=== PATIENT | female | born 1950 | race Caucasian/White ===

== ENCOUNTER 2016-12-04 12:10 | Emergency (ER) | payer OTHER ==
[~2016-12-04 12:10] MED LIST: ASPIRIN EC81 MG PO
[2016-12-04 13:41] LABS: HEMOGLOBIN 12.1 gm/dl (12.3-15.3); RED BLOOD COUNT 4.06 M/UL (4.00-5.10); WHITE BLOOD COUNT 8.3 K/UL (4.5-11.0)
[2016-12-04 13:54] LABS: BUN/CREATININE RATIO 9 (0-10)
== END 2016-12-04 18:36 | disposition home or self-care (01) ==
LOC: ER1 12:10
PROVIDERS: Emergency Medicine
DX: J18.9 Pneumonia, unspecified organism (principal); R09.1 Pleurisy; J44.9 Chronic obstructive pulmonary disease, unspecified; K21.9 Gastro-esophageal reflux disease without esophagitis; F17.200 Nicotine dependence, unspecified, uncomplicated; Z88.6 Allergy status to analgesic agent; Z79.899 Other long term (current) drug therapy
CPT/HCPCS: 36415; 71020; 80053; 83690; 84484; 85025; 85379; 93005; 94640; 94664; 96361; 96365; 99284; J1956; J7050; Q9963

== ENCOUNTER 2016-12-11 14:18 | Emergency (ER) | payer OTHER ==
[2016-12-11 15:33] LABS: HEMOGLOBIN 11.6 gm/dl (12.3-15.3); RED BLOOD COUNT 3.85 M/UL (4.00-5.10); WHITE BLOOD COUNT 9.2 K/UL (4.5-11.0)
[2016-12-11 15:44] LABS: BUN/CREATININE RATIO 13 (0-10)
== END 2016-12-11 23:20 | disposition home or self-care (01) ==
LOC: ER1 14:18
PROVIDERS: Emergency Medicine
DX: J44.1 Chronic obstructive pulmonary disease with (acute) exacerbation (principal); J90 Pleural effusion, not elsewhere classified; D64.9 Anemia, unspecified; F17.200 Nicotine dependence, unspecified, uncomplicated; Z88.6 Allergy status to analgesic agent; Z79.899 Other long term (current) drug therapy
CPT/HCPCS: 36415; 71010; 80053; 82550; 82553; 83874; 83880; 84484; 85025; 85379; 93005; 94640; 94664; 96361; 96374; 99283; J2930; J7050; Q9963

== ENCOUNTER 2016-12-26 15:55 | Emergency (ER) | payer OTHER ==
[2016-12-26 18:45] LABS: HEMOGLOBIN 11.4 gm/dl (12.3-15.3); RED BLOOD COUNT 3.8 M/UL (4.00-5.10); WHITE BLOOD COUNT 9.7 K/UL (4.5-11.0)
[2016-12-26 19:07] LABS: BUN/CREATININE RATIO 9 (0-10)
== END 2016-12-26 19:51 | disposition home or self-care (01) ==
LOC: ER1 15:55
PROVIDERS: Physician Assistant Medical
DX: J18.9 Pneumonia, unspecified organism (principal); I25.10 Atherosclerotic heart disease of native coronary artery without angina pectoris; J44.9 Chronic obstructive pulmonary disease, unspecified; F17.200 Nicotine dependence, unspecified, uncomplicated
CPT/HCPCS: 36415; 71101; 80053; 81001; 83880; 84484; 85025; 93005; 99284

== ENCOUNTER 2016-12-31 13:33 | Inpatient (IN) | payer OTHER ==
[~2016-12-31] VITALS: Ht 162.6 cm; Wt 66.4 kg
[2016-12-31 15:00] LABS: HEMOGLOBIN 12.9 gm/dl (12.3-15.3); RED BLOOD COUNT 4.3 M/UL (4.00-5.10); WHITE BLOOD COUNT 10.7 K/UL (4.5-11.0)
[2016-12-31 15:24] LABS: BUN/CREATININE RATIO 10 (0-10)
[2016-12-31] MEDS ORDERED: TESSALON PERLE100 MG PO (20:29)
[2016-12-31] MEDS ORDERED: LEVOFLOXACIN750 MG PO (20:30)
[2016-12-31] MEDS ORDERED: VENTOLIN/PROVE0.5 ML NEB (20:31)
[2016-12-31] MEDS ORDERED: ZYRTEC10 M3 PO (20:32)
[2016-12-31] MEDS ORDERED: CITALOPRAM HBR40 MG PO (20:32)
[2016-12-31] MEDS ORDERED: ZANAFLEX 4 MG TA4 MG PO (20:33)
[2016-12-31] MEDS ORDERED: PANTOPRAZOLE SO40 MG PO (20:33)
[2016-12-31] MEDS ORDERED: TRAMADOL HCL50 MG PO (20:34)
[2016-12-31] MEDS ORDERED: VENTOLIN/PROVE0.5 ML INH (20:35)
[2017-01-01 05:21] LABS: HEMOGLOBIN 11.8 gm/dl (12.3-15.3); WHITE BLOOD COUNT 11.1 K/UL (4.5-11.0)
[2017-01-01 05:35] LABS: BUN/CREATININE RATIO 12 (0-10)
[2017-01-02 12:17] LABS: BUN/CREATININE RATIO 16 (0-10)
[2017-01-02] MEDS ORDERED: ASPIR 8181 MG PO (19:47)
[2017-01-02] MEDS ORDERED: CITALOPRAM HBR40 MG PO (19:48)
== END 2017-01-02 20:25 | disposition home or self-care (01) | DRG 191 ==
LOC: ER1 13:33 → ZEROF 15:31 → PROG CARE 15:31
PROVIDERS: Internal Medicine; Physician Assistant; ADMIT Internal Medicine
DX: J44.1 Chronic obstructive pulmonary disease with (acute) exacerbation (principal); J90 Pleural effusion, not elsewhere classified; I25.10 Atherosclerotic heart disease of native coronary artery without angina pectoris; I10 Essential (primary) hypertension; E78.5 Hyperlipidemia, unspecified; R07.89 Other chest pain; R74.8 Abnormal levels of other serum enzymes; I87.2 Venous insufficiency (chronic) (peripheral); K21.9 Gastro-esophageal reflux disease without esophagitis; F17.210 Nicotine dependence, cigarettes, uncomplicated; F32.9 Major depressive disorder, single episode, unspecified; Z86.010 Personal history of colon polyps; Z79.899 Other long term (current) drug therapy; Z88.6 Allergy status to analgesic agent; Z88.8 Allergy status to other drugs, medicaments and biological substances; Z90.49 Acquired absence of other specified parts of digestive tract; Z98.890 Other specified postprocedural states; Z80.0 Family history of malignant neoplasm of digestive organs
CPT/HCPCS: ECHO; 36415; 71010; 78452; 80048; 80053; 80061; 81001; 82150; 82550; 82553; 83605; 83690; 83735; 83874; 84484; 85025; 85730; 93005; 93017; 93306; 94640; 94664; 99285; A9502; J0280; J1644; J2785; J7030; J7050; Q9963

== ENCOUNTER → 2020-09-30 | Outpatient (CLI) | payer OTHER ==
[~2020-09-30] MED LIST changes: +AEROCHAMBER1 EA XX; +ASPIR 8181 MG PO; +BENTYL 20MG TAB20 MG PO; +CALCIUM GLUCON500 MG PO; +CEFUROXIME500 MG PO; +CITALOPRAM HBR40 MG PO; +CLARITIN10 MG PO; +COLACE 100MG C100 MG PO; +COUMADIN 1MG TAB1 MG PO; +DESYREL 50 MG T50 MG PO; +ELIQUIS 5 MG TAB5 MG PO; +ELIQUIS2.5 MG PO; +FIBER-LAX625 MG PO; +FLONASE 0.05% N16 GM; +GAS-X125 M1 PO; +GLUCOSAMINE &1 EAC1 PO; +KEFLEX CAP 500500 MG PO; +LEVOFLOXACIN750 MG PO; +MEDROL DOSEPAK 24 MG PO; +MEDROL4 MG PO; +MELATONIN10 M2 PO; +MIRALAX17 GM PO; +ONDANSETRON ODT4 MG PO; +OSTEO BI-FLEX1 EAC1 PO; +PANTOPRAZOLE SO40 MG PO; +PREDNISONE 50 M50 MG PO; +PREDNISONE20 MG PO; +PROAIR DIGIHAL90 MCG INH; +SYMBICORT 16010.2 GM INH; +TESSALON PERLE100 MG PO; +TRAMADOL HCL50 MG PO; +VENTOLIN HFA 66.7 GM INH; +VENTOLIN/PROVE0.5 ML INH; +VENTOLIN/PROVE0.5 ML NEB; +VIBRAMYCIN100 MG PO; +ZANAFLEX 4 MG TA4 MG PO; +ZANTAC150 MG PO; +ZITHROMAX250 MG PO; +ZOFRAN ODT 4 MG4 MG PO; +ZYRTEC10 M3 PO
[2020-09-30 14:48] LABS: RED BLOOD COUNT 4.19 M/UL (4.00-5.10); WHITE BLOOD COUNT 5.8 K/UL (4.5-11.0)
[2020-09-30 15:17] LABS: BUN/CREATININE RATIO 9 (0-10)
[2020-10-02 13:09] LABS: CHOLESTEROL, TOTAL 239 mg/dL (100-199); HDL SIZE 9.3 nm (>=9.2); HDL-C 49 mg/dL (>39); HDL-P (TOTAL) 30.3 umol/L (>=30.5); LARGE HDL-P 5.1 umol/L (>=4.8); LARGE VLDL-P 3.1 nmol/L (<=2.7); LDL SIZE 21.8 nm (>20.5); LDL SIZE 21.8 nm (>=20.8); LDL-C 172 mg/dL (0-99); LDL-P 1963 nmol/L (<1000); LP-IR SCORE 54 (<=45); SMALL LDL-P 529 nmol/L (<=527); TRIGLYCERIDES 100 mg/dL (0-149); VLDL SIZE 57.8 nm (<=46.6)
== END ==
LOC: LAB 13:44
PROVIDERS: Emergency Medicine
DX: E55.9 Vitamin D deficiency, unspecified (principal); F33.0 Major depressive disorder, recurrent, mild; F41.1 Generalized anxiety disorder; G47.09 Other insomnia; I48.11 Longstanding persistent atrial fibrillation; I48.20 Chronic atrial fibrillation, unspecified; E78.6 Lipoprotein deficiency; F17.218 Nicotine dependence, cigarettes, with other nicotine-induced disorders
CPT/HCPCS: 36415; 80053; 84443; 84550; 85025

== ENCOUNTER 2020-12-10 15:38 | Emergency (ER) | payer OTHER ==
[~2020-12-10 15:38] MED LIST changes: -BENTYL 20MG TAB20 MG PO; -CEFUROXIME500 MG PO; -GAS-X125 M1 PO; -MEDROL4 MG PO; -MIRALAX17 GM PO; -ZOFRAN ODT 4 MG4 MG PO
[2020-12-10 18:54] LABS: HEMOGLOBIN 14.1 gm/dl (12.3-15.3); RED BLOOD COUNT 4.38 M/UL (4.00-5.10); WHITE BLOOD COUNT 6.2 K/UL (4.5-11.0)
[2020-12-10 19:14] LABS: BUN/CREATININE RATIO 5 (0-10)
[2020-12-10] MEDS ORDERED: CEFUROXIME500 MG PO (20:33)
[2020-12-10] MEDS ORDERED: MEDROL4 MG PO (20:33)
== END 2020-12-10 20:47 | disposition home or self-care (01) ==
LOC: ER1 15:38
PROVIDERS: Preventive Medicine Occupational Medicine
DX: B34.9 Viral infection, unspecified (principal); J44.9 Chronic obstructive pulmonary disease, unspecified; I25.10 Atherosclerotic heart disease of native coronary artery without angina pectoris; F17.210 Nicotine dependence, cigarettes, uncomplicated; Z20.822 Contact with and (suspected) exposure to COVID-19
CPT/HCPCS: 0240U; 71045; 80053; 81001; 82550; 82553; 83605; 83690; 83874; 83880; 84484; 85025; 85652; 86140; 87086; 99284; J1644; J2270

== ENCOUNTER 2020-12-14 14:43 | Emergency (ER) | payer OTHER ==
[~2020-12-14 14:43] MED LIST changes: +CEFUROXIME500 MG PO; +MEDROL4 MG PO
[2020-12-14 15:42] LABS: HEMOGLOBIN 13.2 gm/dl (12.3-15.3); RED BLOOD COUNT 4.16 M/UL (4.00-5.10); WHITE BLOOD COUNT 10.1 K/UL (4.5-11.0)
[2020-12-14 16:06] LABS: BUN/CREATININE RATIO 11 (0-10)
== END 2020-12-14 18:14 | disposition home or self-care (01) ==
LOC: ER1 14:43
PROVIDERS: Emergency Medicine
DX: R10.9 Unspecified abdominal pain (principal); E78.5 Hyperlipidemia, unspecified; F17.200 Nicotine dependence, unspecified, uncomplicated
CPT/HCPCS: 80053; 81001; 82550; 82553; 83605; 83690; 83874; 84484; 85025; 93005; 96374; 99284; J2405; J7030; Q9967

== ENCOUNTER → 2021-01-18 | Outpatient (CLI) | payer OTHER ==
[~2021-01-18] MED LIST changes: +BENTYL 20MG TAB20 MG PO; +GAS-X125 M1 PO; +MIRALAX17 GM PO; +ZOFRAN ODT 4 MG4 MG PO
== END ==
LOC: MAMO 12-08 08:00 → EXRD 12-08 09:00 → MAMO 13:04
DX: Z12.31 Encounter for screening mammogram for malignant neoplasm of breast (principal); M81.0 Age-related osteoporosis without current pathological fracture
CPT/HCPCS: 77063; 77067; 77080

== ENCOUNTER 2021-02-28 13:44 | Emergency (ER) | payer OTHER ==
[~2021-02-28 13:44] MED LIST changes: -BENTYL 20MG TAB20 MG PO; -GAS-X125 M1 PO; -MIRALAX17 GM PO; -ZOFRAN ODT 4 MG4 MG PO
[2021-02-28 15:09] LABS: HEMOGLOBIN 13.9 gm/dl (12.3-15.3); RED BLOOD COUNT 4.67 M/UL (4.00-5.10)
[2021-02-28 15:37] LABS: BUN/CREATININE RATIO 11 (0-10)
[2021-02-28 21:52] LABS: BUN/CREATININE RATIO 10 (0-10)
[2021-02-28] MEDS ORDERED: BENTYL 20MG TAB20 MG PO (22:09)
[2021-02-28] MEDS ORDERED: ZOFRAN ODT 4 MG4 MG PO (22:09)
== END 2021-02-28 22:26 | disposition home or self-care (01) ==
LOC: ER1 13:44
PROVIDERS: Emergency Medicine; Physician Assistant
DX: R10.84 Generalized abdominal pain (principal); E87.6 Hypokalemia; E78.5 Hyperlipidemia, unspecified; I10 Essential (primary) hypertension; J44.9 Chronic obstructive pulmonary disease, unspecified; Z20.822 Contact with and (suspected) exposure to COVID-19
CPT/HCPCS: 71046; 73030; 80048; 80053; 81001; 82550; 82553; 83690; 83874; 84484; 85025; 93005; 96374; 99284; J3480; J7030; Q9967; U0002

== ENCOUNTER 2021-03-15 20:24 | Emergency (ER) | payer OTHER ==
[~2021-03-15 20:24] MED LIST changes: +BENTYL 20MG TAB20 MG PO; +ZOFRAN ODT 4 MG4 MG PO
[2021-03-15 21:31] LABS: BUN/CREATININE RATIO 7 (0-10)
[2021-03-15 21:32] LABS: HEMOGLOBIN 12.3 gm/dl (12.3-15.3); RED BLOOD COUNT 3.89 M/UL (4.00-5.10); WHITE BLOOD COUNT 8.2 K/UL (4.5-11.0)
[2021-03-15] MEDS ORDERED: MIRALAX17 GM PO (22:49)
[2021-03-15] MEDS ORDERED: GAS-X125 M1 PO (22:49)
== END 2021-03-16 00:15 | disposition home or self-care (01) ==
LOC: ER1 20:24
PROVIDERS: Physician Assistant Medical
DX: K59.00 Constipation, unspecified (principal); E78.5 Hyperlipidemia, unspecified; Z90.49 Acquired absence of other specified parts of digestive tract; Z90.89 Acquired absence of other organs; F17.210 Nicotine dependence, cigarettes, uncomplicated; Z88.6 Allergy status to analgesic agent
CPT/HCPCS: 80053; 81001; 83605; 85025; 96374; 99284; J2405; Q9967

== ENCOUNTER 2021-05-28 16:25 | Inpatient (IN) | payer OTHER ==
[~2021-05-28] VITALS: Ht 162.6 cm; Wt 54.4 kg
[~2021-05-28 16:25] MED LIST changes: +GAS-X125 M1 PO; +MIRALAX17 GM PO
[2021-05-28 17:53] LABS: HEMOGLOBIN 13.9 gm/dl (12.3-15.3); RED BLOOD COUNT 4.75 M/UL (4.00-5.10); WHITE BLOOD COUNT 7.6 K/UL (4.5-11.0)
[2021-05-28 18:06] LABS: BUN/CREATININE RATIO 6 (0-10)
[2021-05-29 06:56] LABS: WHITE BLOOD COUNT 6.8 K/UL (4.5-11.0)
[2021-05-29 07:02] LABS: RED BLOOD COUNT 3.89 M/UL (4.00-5.10)
[2021-05-29 07:03] LABS: HEMOGLOBIN 11.7 gm/dl (12.3-15.3)
[2021-05-29 08:06] LABS: BUN/CREATININE RATIO 8 (0-10)
[2021-05-30 07:44] LABS: BUN/CREATININE RATIO 10 (0-10)
[2021-05-31 08:52] LABS: BUN/CREATININE RATIO 10 (0-10)
== END 2021-05-31 15:38 | disposition home or self-care (01) | DRG 389 ==
LOC: ER1 16:25 → CDU 05-29 01:39 → M/S 05-29 01:39
PROVIDERS: Internal Medicine; Physician Assistant; ADMIT Internal Medicine
DX: K56.600 Partial intestinal obstruction, unspecified as to cause (principal); E87.1 Hypo-osmolality and hyponatremia; N30.00 Acute cystitis without hematuria; I10 Essential (primary) hypertension; Z20.822 Contact with and (suspected) exposure to COVID-19; J44.9 Chronic obstructive pulmonary disease, unspecified; F17.210 Nicotine dependence, cigarettes, uncomplicated; R79.1 Abnormal coagulation profile; R19.7 Diarrhea, unspecified; F41.9 Anxiety disorder, unspecified; F32.9 Major depressive disorder, single episode, unspecified; I48.0 Paroxysmal atrial fibrillation; Z90.49 Acquired absence of other specified parts of digestive tract; Z90.89 Acquired absence of other organs; Z79.01 Long term (current) use of anticoagulants; Z98.51 Tubal ligation status; Z98.890 Other specified postprocedural states; Z88.8 Allergy status to other drugs, medicaments and biological substances; Z80.6 Family history of leukemia
CPT/HCPCS: 36415; 71045; 80048; 80053; 81001; 83690; 83735; 85025; 85610; 87086; 93005; 96374; 96375; 99285; C9113; J0696; J2405; J3430; J7030; Q9963; Q9967; U0002